=== PATIENT | female | born 1950 | race Caucasian/White ===

== ENCOUNTER 2021-12-26 10:03 | Outpatient (CLI) | payer OTHER, SELFPAY ==
[2021-12-26 13:44] LABS: Albumin* 4.7 g/dL (3.3-5.0); Chloride* 103 mmol/L (96-114)
[2021-12-26 13:45] LABS: Sodium* 140 mmol/L (135-149)
[2021-12-26 13:47] LABS: Aspartate Amino Transferase* 22 U/L (12-35); Bilirubin Total* 0.4 mg/dL (0.1-1.5); Carbon Dioxide* 29 mmol/L (20-32); Cholesterol* 176 mg/dL (90-199); Creatinine* 0.5 mg/dL (0.5-1.5); Estimated Glomerular Filt Rate 100 ml/min; Total Protein* 7.6 g/dL (6.0-8.3)
[2021-12-26 13:48] LABS: Alanine Aminotransferase* 21 U/L (4-35); Alkaline Phosphatase* 103 U/L (40-150); Blood Urea Nitrogen* 15 mg/dL (7-30); Calcium* 11.4 mg/dL (8.4-10.6); Glucose* 103 mg/dL (60-115); HDL Cholesterol* 38 mg/dL (>=50); LDL Cholesterol Calculated 93 mg/dL (<100); Triglycerides* 225 mg/dL (40-149)
[2021-12-26 14:00] LABS: Vitamin D 25 Hydroxy* 48 ng/mL (30-80)
[2021-12-26 14:14] LABS: TSH With Reflex to FT4* 0.524 uIU/mL (0.270-4.200)
== END 2021-12-26 10:04 | disposition home or self-care (01) ==
PROVIDERS: PCP Physician Assistant Medical; Visit Provider Physician Assistant Medical
DX: Z00.00 Encounter for general adult medical examination without abnormal findings (principal); E78.5 Hyperlipidemia, unspecified; D56.3 Thalassemia minor; E83.52 Hypercalcemia
CPT/HCPCS: 80053; 80061; 82306; 82310; 83970; 84443

== ENCOUNTER 2024-07-03 09:11 | Outpatient (CLI) | payer MEDICARE, SELFPAY | END 2024-07-03 09:12 | disposition home or self-care (01) | PROVIDERS: PCP Physician Assistant Medical; Visit Provider Physician Assistant Medical | DX: E83.52 Hypercalcemia (principal); E78.5 Hyperlipidemia, unspecified; I10 Essential (primary) hypertension; Z13.29 Encounter for screening for other suspected endocrine disorder | CPT/HCPCS: 80053; 80061; 82306; 83970; 84443 ==

== ENCOUNTER 2024-07-17 08:35 | Outpatient (CLI) | payer MEDICARE, SELFPAY ==
--- NOTE | 2024-07-17 09:00 | CRLHL7_ITS ---
For Patients: As a result of the Century Cures Act, medical imaging exams and procedure reports are released immediately into your electronic medical record. You may view this report before your referring provider. If you have questions, please contact your health care provider. DXA BONE MINERAL DENSITY STUDY Current height (in): 60. Weight (lb): 151 Menopause age: 54. Ethnicity: White. 1. Have you had a previous hip or vertebral fracture? No. 2. Have you had any fractures during your adult life which did not result from significant trauma (e.g., auto accident)? No. 3. Did either of your parents have a hip fracture? No. 4. Do you smoke? No. 5. Have you ever taken Glucocorticoids? No. 6. Do you have rheumatoid arthritis? No. 7. Do you have secondary osteoporosis? No. 8. Do you drink 3 or more alcoholic drinks per day? No. 9. Are you being treated for osteoporosis? No. 10. Have you ever taken any of the following medications: Actonel, Evista, Fosamax, Miacalcin, Reclast, Boniva, Forteo, HRT (i.e. estrogen/hormone therapy), Protelos, Prolia, Vitamin D, Calcium, other ??? please specify. ANSWER: Yes, Vitamin D. 11. Do you have any of the following medical conditions: Anorexia or bulimia, asthma or emphysema, end stage renal disease, hyperparathyroidism, any seizure disorders, cancer, inflammatory bowel diseases, hysterectomy, other ??? please specify. ANSWER: Yes, Hyperparathyroidism and Hysterectomy. 12. What was your maximum height (inches)? 61. 13. Do you perform weight bearing exercise regularly? No. 14. Do you regularly consume dairy products? No. 15. Do you drink caffeinated beverages? Yes. 16. At what age did your period start? 14. 17. Are you premenopausal? No. 18. How many full term pregnancies have you had? 4. 19. Have you ever missed your period for more than 6 months in a row (not including or menopause)? No. TECHNIQUE: Bone mineral density study was performed using the [employer]. FINDINGS: The results of the study expressed as bone mineral density (BMD) are as follows: Lumbar spine L1 to L4: BMD: 0.793 g/cm2. T-score: -2.3. Z-score: 0.0. Neck Left: BMD: 0.612 g/cm2. T-score: -2.1. Z-score: -0.1. Right: BMD: 0.578 g/cm2. T-score: -2.4. Z-score: -0.4. Total Left: BMD: 0.866 g/cm2. T-score: -0.6. Z-score: 1.1. Right: BMD: 0.747 g/cm2. T-score: -1.6. Z-score: 0.1. IMPRESSION: Osteopenia. COMPARISON: Compared with scan of 03/10/2021, the bone mineral density has increased by 3.7 percent at the spine and increased by 0.5 percent at the hip. FRAX 10-year Fracture Risk Major Osteoporotic Fracture: 15 percent Hip Fracture: 4.1 percent Reported Risk Factors: [place] () Neck BMD=0.578, BMI=29.5. Carli Monteiro M.D. Diagnostic/Breast Radiologist [email or web address] ANDREA/freedom / DW/Dictated by: Carli Monteiro MD @ 07/18/2024 3:26:00 PM (Electronically Signed)
== END 2024-07-17 08:36 | disposition home or self-care (01) ==
LOC: RAD 08:37
PROVIDERS: PCP Physician Assistant Medical; Visit Provider Physician Assistant Medical
DX: Z13.820 Encounter for screening for osteoporosis (principal); M85.89 Other specified disorders of bone density and structure, multiple sites
CPT/HCPCS: 77080

== ENCOUNTER 2025-03-06 12:57 | Outpatient (CLI) | payer MEDICARE, SELFPAY | END 2025-03-06 12:58 | disposition home or self-care (01) | PROVIDERS: PCP Physician Assistant Medical; Visit Provider Physician Assistant Medical | DX: R79.89 Other specified abnormal findings of blood chemistry (principal); E83.52 Hypercalcemia; I10 Essential (primary) hypertension | CPT/HCPCS: 82306; 82310; 83970 ==